=== PATIENT | male | born 1995 | race Caucasian/White ===

== ENCOUNTER 2017-01-29 21:26 | Emergency (ER) | payer SELFPAY ==
--- NOTE | ~2017-01-29 | ER ---
PATIENT'S NAME: SKINNY BERMEO [facility] AGE: 21 Y [address] ROOM: [place], [place] [address] LOCATION: ED ADMIT DATE: 01/29/2017 ER/Outpatient Report DISCHARGE DATE: 01/29/2017 FAMILY PHYSICIAN: PHYSICIAN, NO ATTENDING PHYSICIAN: Benny Dutton Time of Arrival: 2133 hours. Time of Encounter: 2143 hours. CHIEF COMPLAINT: Congestion, nausea, low-back pain, and chills. HISTORY OF PRESENT ILLNESS: The patient is a pleasant 21-year-old male complaining of shortness of breath, cough, and muscle aches that started about six days ago. Worsened acutely today to include back pain as well as one episode of bile or mucus appearing vomit. Has had some low-grade fevers but nothing he has recorded. He is a current smoker and goes through about one pack per day over the last year. PERTINENT REVIEW OF SYSTEMS: All systems were reviewed by me and negative unless, otherwise, stated in the HPI. PAST MEDICAL AND SURGICAL HISTORY: Includes asthma, anxiety, and depression, but no surgical history. MEDICATIONS: No medications. ALLERGIES: NO KNOWN DRUG ALLERGIES. OBJECTIVE: VITAL SIGNS: Weight 84 kilograms, height 6 feet 1 inch, blood pressure 90/56, pulse 98, respirations 16 breaths per minute, temp 99.1 degrees Fahrenheit, SpO2 of 96% on room air. Current pain 9/10. GENERAL: The patient is well developed, well nourished, in mild distress. He is calm. Alert and oriented to person, place, and time. HEENT: Head is atraumatic and normocephalic. Conjunctivae are clear bilaterally. No discharge. Pupils are PERRLA bilaterally. EOMFI bilaterally. No nystagmus. Ears are showing patent auditory canals bilaterally. TMs with good light reflex bilaterally as well. Mildly pressurized bilaterally. Nose shows moderately swollen turbinates with clear drainage. Throat with midline uvula. No exudates, erythema, or tonsillar hypertrophy. PATIENT'S NAME: SKINNY BERMEO [facility] AGE: 21 Y [address] ROOM: [place], [place] [address] LOCATION: ED ADMIT DATE: 01/29/2017 ER/Outpatient Report DISCHARGE DATE: 01/29/2017 FAMILY PHYSICIAN: PHYSICIAN, NO ATTENDING PHYSICIAN: Benny Dutton NECK: Supple and without lymphadenopathy. Trachea midline. No JVD. LUNGS: Clear to auscultation bilaterally. No wheezes, crackles, rhonchi, or stridor. Normal respiratory effort. HEART: Regular rate and rhythm. No S3, S4, or extra sounds. MUSCULOSKELETAL: Full axial range of motion of the back. Diffusely tender in the L-spine erector spinae muscles. No radiculopathy. Deep tendon reflexes +2/4 at the knee and ankle levels bilaterally. Muscle strength 4/5 for flexion and extension of the knee and hip level as well. LABORATORY DATA AND X-RAYS: CBC shows white count 8.8, red blood cell 4.73, hemoglobin 15.5, hematocrit 43.8, MCV 92.6, MCH 32.8, MCHC 35.4, RDW 11.6, platelet 150, MPV 9.3. Auto diff within normal limits. Discussed results with the patient. Influenza A and B tested negative. ASSESSMENT: 1. Viral gastroenteritis. 2. Nausea with vomiting. PLAN: We will provide the patient with Zofran in Emergency Department today and he had good resolution of his nausea and was able to drink 8 to 12 ounces of water without issue. I think he can be discharged under improved status, to be transported home via private auto. We will send him some promethazine with codeine cough syrup as I feel this is viral in nature, but that should be helpful both to manage his upper respiratory complaints as well as nausea. Advised him not to go to work tomorrow, and provided him a note reflecting this. Practice of bland diet and push clear fluids primarily for the next 1 to 2 days. Then may advance diet to bananas, rice, applesauce, and toast type bland foods as tolerated. Advised him to see his primary care provider in the next 3 to 5 days, or return to the emergency department sooner if worsening. Take ibuprofen or Tylenol as directed for discomfort. Discussed med risks, side effects, and benefits in detail with the patient. Take all medications as prescribed. JUAN A DOMINIQUE PA-C FOR MD AGNIESZKA SHARPE/modl /[id number] d: 01/30/17 0136 t: 02/06/17 1005, OUTPATIENT REPORT
[2017-01-29 22:13] LABS: BASOPHIL % 0.1 %; HEMATOCRIT 43.8 % (37.0-53.0); HEMOGLOBIN 15.5 g/dL (12.0-17.0); IMMATURE GRANULOCYTE % 0.2 %; LYMPHOCYTE # 1.1 K/uL (0.8-4.0); LYMPHOCYTE % 12.2 %; MCH 32.8 pg (27.0-34.0); MCHC 35.4 gm/dL (32.0-36.5); MCV 92.6 fl (83.0-98.0); MONOCYTE # 0.7 K/uL (0.0-1.0); MONOCYTE % 7.6 %; MPV 9.3 fl (9.4-12.4); NEUTROPHIL # (ANC) 7.1 K/uL (1.4-9.0); NEUTROPHIL % 79.9 %; NRBC % 0 /100WBC (0-0.00); PLATELET COUNT 150 K/uL (150-450); RBC 4.73 M/uL (4.00-6.00); RDW-CV 11.6 % (11.9-14.6); WBC 8.8 K/uL (4.0-11.0)
== END 2017-01-29 22:42 | disposition disaster alternative care site (69) ==
LOC: GMED 21:26
PROVIDERS: Emergency Medicine
DX: A08.4 Viral intestinal infection, unspecified (principal); J45.909 Unspecified asthma, uncomplicated; F32.9 Major depressive disorder, single episode, unspecified; F41.9 Anxiety disorder, unspecified